=== PATIENT | female | born 1980 | race Caucasian/White ===

== ENCOUNTER 2025-04-25 07:34 | Emergency (ER) | payer MEDICAID ==
[~2025-04-25] VITALS: Ht 157.5 cm; Wt 56.2 kg
[2025-04-25 07:37] VITALS: BP 124/83; PULSE 80; RESP 16; TEMP 97.9; O2SAT 100
[2025-04-25] MEDS: LIDOcaine 1% (10mg/ml) 2ml vial SQ ONE (08:34)
[2025-04-25] MEDS ORDERED: CEPH-585 PO (09:11)
[2025-04-25] MEDS ORDERED: HYDR-3973 PO (09:11)
[2025-04-25] MEDS: HYDROcodone/acetaminophen 10/325mg tab PO ONE (09:21)
[2025-04-25] MEDS: ibuprofen tablet 400 MG TABLET PO ONE (09:21)
[2025-04-25] MEDS: TETanus/Pertussis (Acell)/Diphther VAC/PF (Tdap-Adult) 0.5ml syringe IMVAC ONE (09:24)
--- NOTE | 2025-04-25 09:24 | Physician Documentation ---
History of Present Illness ~ Chief Complaint: Foreign body Stated Complaint: FISH HOOK IN FINGER Time Seen by MD: 08:22 Source: patient Mode of Arrival: POV Exam Limitations: no limitations HPI Chief Complaint: Gillis in finger Caveat: None Independent Historians: None History of Present Illness: Patient is a 45-year-old woman who was fishing last night on [employer]. She was on a cardiac at night fishing for heredia when she got a fishing lower a stuck in caught on her 1st finger. Patient tried pulling it out without success. Patient's pain is moderate. This occurred at 1:00 a.m.. Review of systems: All systems were reviewed and are negative except for what is indicated in the history of present illness. Past Medical History: None Past Surgical History: None Social History: Tobacco use, denies alcohol or drug use Medications: Reviewed as documented Nursing Notes Allergies: Reviewed as documented in Nursing Notes Medication Reconciliation Allergies: Coded Allergies: No Known Allergies (Unverified , 04/25/25) Scheduled Cephalexin*Monohydrate* (Keflex*), 1 CAP PO QID Scheduled PRN Hydrocodone Bit/Acetaminophen (Hydrocodone-Apap 10-325 Tablet), 1 TAB PO TID PRN PRN for pain Discontinued Medications Cephalexin*Monohydrate* (Keflex*), 1 CAP PO QID Hydrocodone Bit/Acetaminophen (Hydrocodone-Apap 10-325 Tablet), 1 TAB PO TID PRN PRN for pain Past Medical History Last Menstrual Period: Apr 18, 2025 Smoking Status: Current every day smoker Review of Systems All Other Systems at this time: Reviewed and Negative ROS Patient denies any other acute symptoms other than above. All other systems are negative Physical Exam Vital Signs: RN Vital Signs have been reviewed: Yes, Temperature: 97.9, Source: Temporal, Heart Rate: 80, Respiratory Rate: 16, BP: 124/83, Pulse Oximetry: 100, Weight: 56.200 Pulse Oximetry Reflects: adequate oxygenation Physical Exam General Appearance: No distress HEENT: Normal OP, moist oral mucosa, PERRL, EOMI Neck: supple, normal ROM, trachea midline Pulmonary: No respiratory distress, CTA, BS equal Cardiac: RRR, no murmur, rub or gallop, Extremities: HOOK OF A FISHING LURE IMBEDDED IN THE LEFT INDEX FINGER Skin: intact, dry, warm, no rashes Neuro: AAOx3, speech is clear, no focal motor weakness Psych: normal affect, good eye contact, no apparent hallucination, normal speech Progress Results/Orders Results/Orders Orders - KRUPA COHEN MD Finger(S) (04/25/25 09:06) Completed Orders - KRUPA COHEN MD Lidocaine 1%/Pf 2ml (Xylocaine-Mpf 1% Vi (04/25/25 08:25) Cephalexin Capsule (Keflex Capsule) (04/25/25 09:10) Hydrocodone/Apap 10/325 ([place] 10/325mg (04/25/25 09:10) Ibuprofen Tablet (Motrin Tablet) (04/25/25 09:10) Ibuprofen Tablet (Motrin Tablet) (04/25/25 09:10) Tetanus/Pertuss/Diph Acell/Pf (Boostrix (04/25/25 09:10) Finger(S) (04/25/25 09:06) Medications Received in ER Medications (Trade) Dose Ordered Sig/Anastacia Route PRN Reason Start Time Stop Time Status Last Admin Dose Admin (Keflex capsule) 500 mg ONCE ONCE PO 04/25/25 09:10 04/25/25 09:11 DC 04/25/25 09:20 500 MG ([place] 10/325mg tab) 1 tab ONCE ONCE PO 04/25/25 09:10 04/25/25 09:11 DC 04/25/25 09:21 1 TAB (Motrin tablet) 400 mg ONCE ONCE PO 04/25/25 09:10 04/25/25 09:11 DC 04/25/25 09:21 400 MG (Motrin tablet) 200 mg ONCE ONCE PO 04/25/25 09:10 04/25/25 09:11 DC 04/25/25 09:21 200 MG (Boostrix vaccine syringe) 0.5 ml ONCE ONCE IMVAC 04/25/25 09:10 04/25/25 09:11 DC 04/25/25 09:24 0.5 ML Vital Signs 04/25/25 07:37 Temp 97.9 Pulse 80 Resp 16 B/P (MAP) 124/83 Pulse Ox 100 Medical Decision Making Findings Differential diagnosis includes but is not limited to: Gillis foreign body, bone injury Finger x-rays, three views left index finger, indication: Trauma Impression: No evidence of bone injury. No evidence of foreign body or fractur e. Emergency department course/medical decision-making: Patient's left index finger is prepped with Betadine. Fingertip is anesthetized with a proximally 0.4 cc of 1% lidocaine without epi. The fistula could not be advanced to through the skin. Therefore a scalpel 11. Blade was used to cut tissue over the chelsi. Fish hook was removed. Dressing applied. Patient is given [place], Keflex and tetanus booster. Patient will also be given a prescription for Keflex. There are no signs of infection at this time. This is prophylactic. Patient is stable for discharge. Departure Time of Disposition: 09:09 Disposition: HOME / SELF CARE / HOMELESS Impression: Primary Impression: Fish hook injury of finger of left hand Qualified Codes: S69.92XA - Unspecified injury of left wrist, hand and finger(s), initial encounter Condition: Improved Discharge Instructions: Gillis Removal Additional Instructions: RETURN TO THE ER IF YOU DEVELOP SIGNIFICANT REDNESS SWELLING AND PAIN OR DRAINAGE THAT MAY BE SIGNS OF INFECTION Prescriptions Hydrocodone Bit/Acetaminophen (Hydrocodone-Apap 10-325 Tablet) 10mg/325mg Tablet 1 TAB PO TID PRN PRN for pain, #6 TAB Prov: KRUPA COHEN MD 04/25/25 Cephalexin*Monohydrate* (Keflex*) 500 Mg Capsule 1 CAP PO QID, #28 CAP Prov: KRUPA COHEN MD 04/25/25 Education Educated regarding: diagnosis, treatment, need for follow up Signature Scribe Signature: No scribe Attestation: No scribe KRUPA COHEN MD Apr 25, 2025 09:24
--- NOTE | 2025-04-25 09:42 | RADIOLOGY REPORT ---
DI FINGER(S), INDICATION: left index finger injury TECHNICAL DATA: Frontal view of the left hand and lateral and oblique views of the left index were ob tained. COMPARISON: None FINDINGS: No fracture is identified. Joint spaces are maintained. Alignment is anatomic. Soft tissues are withi n normal limits. IMPRESSION: No acute fracture seen.
== END 2025-04-25 09:36 | disposition home or self-care (01) ==
LOC: ER 07:34
DX: S69.92XA Unspecified injury of left wrist, hand and finger(s), initial encounter (principal); F17.200 Nicotine dependence, unspecified, uncomplicated; Z23 Encounter for immunization; W45.8XXA Other foreign body or object entering through skin, initial encounter; Y93.89 Activity, other specified; Y92.89 Other specified places as the place of occurrence of the external cause; Y99.8 Other external cause status
CPT/HCPCS: 73140; 90471; 90715; 99284